=== PATIENT | female | born 1980 | race Two or more races ===

== ENCOUNTER 2017-01-05 17:48 | Emergency (ER) | payer SELFPAY | END 2017-01-05 19:46 | disposition left against medical advice (07) | LOC: D.ER 17:48 | DX: S40.862A Insect bite (nonvenomous) of left upper arm, initial encounter (principal); W57.XXXA Bitten or stung by nonvenomous insect and other nonvenomous arthropods, initial encounter; Y93.89 Activity, other specified; Y92.89 Other specified places as the place of occurrence of the external cause ==